=== PATIENT | male | born 1945 | race Caucasian/White ===

== ENCOUNTER 2023-09-06 08:50 | Outpatient (CLI) | payer MEDICARE, SELFPAY | END 2023-09-06 08:51 | disposition home or self-care (01) | PROVIDERS: PCP Family Medicine; Visit Provider Family Medicine | DX: I10 Essential (primary) hypertension (principal); E78.5 Hyperlipidemia, unspecified; D64.9 Anemia, unspecified; C61 Malignant neoplasm of prostate | CPT/HCPCS: 80048; 80061; 84153 ==

== ENCOUNTER 2025-01-22 09:40 | Outpatient (CLI) | payer MEDICARE, SELFPAY | END 2025-01-22 09:41 | disposition home or self-care (01) | PROVIDERS: PCP Family Medicine; Visit Provider Family Medicine | DX: E78.2 Mixed hyperlipidemia (principal); I10 Essential (primary) hypertension; C61 Malignant neoplasm of prostate | CPT/HCPCS: 80048; 80061; 84153 ==

== ENCOUNTER 2025-05-11 11:41 | Emergency (ER) | payer MEDICARE, SELFPAY ==
--- OUTSIDE RECORDS SUMMARY | 2025-05-11 11:43 | XMS_ITS | CCD ---
Author Name Interface, [id number] Address [address] [place] [address] Oncology Address [address] [place] [id number] Reason for Visit Social History Date Name Value Sex Male
[2025-05-11 12:35] VITALS: BP 150/88; PULSE 73; RESP 18; TEMP 36.8; O2SAT 98; BMI 31.3
--- NOTE | 2025-05-11 13:39 | ED.GENADULT ---
HPI - General Adult General Time Seen by Provider: 13:39 Date Seen: 05/11/25 Chief complaint: Unspecified Complaint, Adult Stated complaint: rabies shot, contact with bat Time Seen by Provider: 05/11/25 13:29 Source: patient and RN notes reviewed Mode of arrival: ambulatory Limitations: no limitations History of Present Illness HPI narrative: This 79-year-old male is coming in needing rabies vaccination per his report. He awoke to a bat flying around his head, he was asleep in the room. He is not sure if it landed on him, has no new sites of injury but we did review that bats have such razor sharp teeth that sometimes people will not even know if they have been bit. We did discuss that awakening with a bat in the room has been criteria for rabies vaccination initiation per [facility]. He did not catch the back, bat did get away. Related Data Home Medications ?Medication ?Instructions ?Recorded ?Confirmed aspirin 81 mg tablet,delayed 81 mg PO QDAY 01/09/23 05/11/25 release (Adult Aspirin Regimen) Previous Rx's ?Medication ?Instructions ?Recorded lisinopril 10 mg tablet 10 mg PO QDAY #90 tabs 01/22/25 simvastatin 40 mg tablet 40 mg PO QHS #90 tabs 01/22/25 Allergies Allergy/AdvReac Type Severity Reaction Status Date / Time No Known Drug Allergies Allergy Verified 05/11/25 12:41 Review of Systems Narrative: As per HPI. FORMERLY [facility], [facility] PFS Surgical History History of prostate biopsy ?Z98.890 - Other specified postprocedural states (ICD-10) Status post vasectomy ?Z98.52 - Vasectomy status (ICD-10) Family History Other Prostate cancer Social History What is your current living situation?: I presently have a place to live Problems where you live: no known problems In the past 12 months, utilities in danger of being shut off: no In past 12 months, lack of transportation kept you from medical appts, meetings, work, or getting things needed for daily living: no In the past 12 mos, have been you worried that your food would run out before you had money to buy more?: never true In the past 12 mos, the food you bought just didn't last and you didn't have money to buy more?: never true Smoking Status: Former smoker How often does anyone, including family, friends and others, physically hurt you: never How often does anyone, including family, friends and others, insult or talk down to you: frequently How often does anyone, including family, friends and others, threaten you with harm: never How often does anyone, including family, friends and others, scream or curse at you: frequently Health Related Social Needs: Other personal risk factors, not elsewhere classified (Z91.89) Exam Const: Vital Signs, click to edit/add: Vital Signs - 24 hr 05/11/25 12:35 Temperature 98.3 F Pulse Rate [Right Pulse Oximeter] 73 Respiratory Rate 18 Blood Pressure [Ri ght Upper Arm] 150/88 H Pulse Oximetry 98 Oxygen Delivery Me thod Room Air This 79-year-old male is alert, interactive, no apparent distress. Ambulatory into the ED of his own accord. Notes no side of injury or bleeding. Documenting provider has reviewed patient's vital signs: yes Course Course ED Course: Have discussed risks benefits and side effects of rabies immunization and rabies immunoglobulin with patient. In the future, if he were ever to have a back contact again, would just need the vaccine updated. At this time will initiate rabies immune globulin and vaccination series. Understands he will return for the vaccine on days 3, 7 and 14. He will get the rabies immune globulin today and the initial rabies vaccine. Vital Signs Vital signs: Initial Vital Signs Temperature 98.3 F 05/11/25 12:35 Temperature Source Temporal Artery Scan 05/11/25 12:35 Pulse Rate 73 05/11/25 12:35 Pulse Rhythm Regular 05/11/25 12:35 Pulse Strength 3+ Normal 05/11/25 12:35 Respiratory Rate 18 05/11/25 12:35 Blood Pressure 150/88 H 05/11/25 12:35 Blood Pressure Mean 108 H 05/11/25 12:35 Blood Pressure Position Sitting 05/11/25 12:35 Pulse Oximetry 98 05/11/25 12:35 Oxygen Delivery Method Room Air 05/11/25 12:35 Vital Signs Temperature 98.3 F 05/11/25 12:35 Pulse Rate 73 05/11/25 12:35 Respiratory Rate 18 05/11/25 12:35 Blood Pressure 150/88 H 05/11/25 12:35 Pulse Oximetry 98 05/11/25 12:35 Oxygen Delivery Method Room Air 05/11/25 12:35 Temperature 98.3 F 05/11/25 12:35 Pulse Rate 73 05/11/25 12:35 Respiratory Rate 18 05/11/25 12:35 Blood Pressure 150/88 H 05/11/25 12:35 Pulse Oximetry 98 05/11/25 12:35 Oxygen Delivery Method Room Air 05/11/25 12:35 Medications Administered Medications: Discontinued Medications Generic Name Dose Route Start Last Admin Trade Name Freq PRN Reason Stop Dose Admin Rabies Immune Globulin 1,815 unit 05/11/25 13:52 05/11/25 14:33 Rabies Immune Globulin 150 Unit/Ml Inj 20 unit/kg (1815 unit) 05/11/25 13:53 1,815 unit INFILTRATI Administration ONCE ONE Rabies Vaccine 2.5 unit 05/11/25 13:52 05/11/25 14:24 Rabies Vaccine (Rabavert) 2.5 Unit IM 05/11/25 13:53 2.5 unit .ONCE ONE Administration Discharge Plan Discharge Clinical Impression: Need for post exposure prophylaxis for rabies Patient Disposition: Home, Self-Care Condition: Stable Instructions: Rabies Vaccine (By injection), Rabies Immune Globulin (By injection), Rabies (ED) Additional Instructions: Certainly can take some Tylenol if you do get a low-grade fever or achy from getting the immunoglobulin or injection. You will need to return on days 3, 7 and 14 for completion of the rabies series. Activity Level: No Restrictions Prescriptions: No Action aspirin [Adult Aspirin Regimen] 81 mg tablet,delayed release (DR/EC) 81 mg PO QDAY lisinopril 10 mg tablet 10 mg PO QDAY Qty: 90 3RF simvastatin 40 mg tablet 40 mg PO QHS Qty: 90 3RF Follow Up/Referrals: Alex Carter MD [Primary Care Provider, Family Practice] Stand Al[facility] Inst[facility]
--- OUTSIDE RECORDS SUMMARY | 2025-05-11 14:02 | XMS_ITS | CCD ---
Author Name Interface, [id number] Address [address] [place] [address] Oncology Address [address] [place] [id number] Reason for Visit Social History Date Name Value Sex Male
--- OUTSIDE RECORDS SUMMARY | 2025-05-11 14:02 | XMS_ITS | CCD ---
Author Name Interface, [id number] Address [address] [place] [address] Oncology Address [address] [place] [id number] Reason for Visit Social History Date Name Value Sex Male
[2025-05-11] MEDS: RABIES VACCINE (RABAVERT) 2.5 UNIT IM (14:24)
[2025-05-11] MEDS: RABIES IMMUNE GLOBULIN 150 UNIT/ML INJ 1815 UNIT INFILTRATI (14:33)
== END 2025-05-11 14:54 | disposition home or self-care (01) ==
PROVIDERS: Emergency Provider Family Medicine; PCP Family Medicine
DX: Z20.3 Contact with and (suspected) exposure to rabies (principal)
CPT/HCPCS: 90377; 96372; 99282; 90675

== ENCOUNTER 2025-05-25 09:39 | Outpatient (RCR) | payer MEDICARE, SELFPAY ==
[2025-05-14] MEDS: RABIES VACCINE (RABAVERT) 2.5 UNIT IM (13:19)
[2025-05-14 13:23] VITALS: BP 162/75; PULSE 60; RESP 16; TEMP 36.5; O2SAT 98
[2025-05-18 12:18] VITALS: BP 154/74; RESP 16; O2SAT 96
[2025-05-18] MEDS: RABIES VACCINE (RABAVERT) 2.5 UNIT IM (12:20)
[2025-05-25 09:51] VITALS: BP 134/74; PULSE 71; RESP 16; TEMP 37; O2SAT 98
[2025-05-25] MEDS: RABIES VACCINE (RABAVERT) 2.5 UNIT IM (09:53)
== END 2025-05-25 10:02 | disposition home or self-care (01) ==
PROVIDERS: PCP Family Medicine; Visit Provider Family Medicine
DX: Z29.14 Encounter for prophylactic rabies immune globulin (principal); Z20.3 Contact with and (suspected) exposure to rabies; Z23 Encounter for immunization
CPT/HCPCS: 80307; 90471; 90472; 90675